=== PATIENT | female | born 1985 | race Caucasian/White ===

== ENCOUNTER 2017-12-03 17:44 | Emergency (ER) | payer MEDICAID, OTHER ==
[~2017-12-03] VITALS: Ht 152.4 cm; Wt 113.4 kg
[~2017-12-03 17:44] MED LIST: PREN1TAB39 PO
--- OUTSIDE RECORDS SUMMARY | 2017-12-03 17:50 | XMS REPORT ---
Author Author SOURAV Parikh Organization [facility] Address Unknown Care Team Providers Care Car Attendant Name Role Phone SOURAV Parikh Unavailable PROBLEMS Type Condition ICD9-CM Code [id number] Code Onset Dates Condition Status SNOMED Code Problem Morbid obesity 278.01 Active 073127799 Problem Irregular menstrual cycle 626.4 Active 51056522 Problem General counseling for initiation of other contraceptive measures V25.02 Active [id number] ALLERGIES Substance Reaction Event Type Date Status Aspirin Unknown Drug Allergy Jun, Active ENCOUNTERS Encounter Location Date Diagnosis [facility] [address] [id number] Jun, Dental examination Z01.20 [facility] [address] [phone] Mar, Encounter for dental examination Z01.20 and Dental caries K02.9 [facility] [phone] [place] [phone] Jun, [facility] [id number] [place] [phone] Jun, [facility] [id number] [place] [phone] Jun, [facility] [phone] [place] [phone] Apr, [facility] [address] [phone] Apr, [facility] [id number] [place] [phone] Apr, [facility] [address] [phone] Mar, [facility] [address] [facility] [id number] [place] [phone] Mar, [facility] [address] [facility] [id number] [place] [address] Sep, IMMUNIZATIONS No Known Immunizations SOCIAL HISTORY Never Assessed REASON FOR VISIT PAIN PLAN OF CARE Activity Details Follow Up prn Reason:1 hour te/filling VITAL SIGNS Blood pressure systolic 126 mmHg 2016-06-30 Blood pressure diastolic 88 mmHg 2016-06-30 MEDICATIONS No Known Medications RESULTS No Results PROCEDURES Procedure Date Ordered Result Body Site COMP ORAL EVALUATION - NEW/EST PT June 30, 2016 PANORAMIC FILM SEE ALSO CODE 42930 June 30, 2016 INSTRUCTIONS MEDICATIONS ADMINISTERED No Known Medications MEDICAL (GENERAL) HISTORY Type Description Date Medical History Asthma Surgical History 02/15/15
--- OUTSIDE RECORDS SUMMARY | 2017-12-03 17:50 | XMS REPORT ---
Author Author ALLEN MALONEY Organization [employer] Address Unknown Phone Unavailable Care Team Providers Care Clay Mixer Name Role Phone ALLEN MALONEY CP Unavailable Allergies, Adverse Reactions, Alerts Substance Reaction Event Type Aspirin Info Not Available Drug Allergy Problems Problem Type Condition Code Onset Dates Condition Status Problem Irregular menstrual cycle 626.4 Active Problem Morbid obesity 278.01 Active Problem General counseling for initiation of other contraceptive measures V25.02 Active Assessment Encounter for dental examination Z01.20 Active Assessment Dental caries K02.9 Active Medications Medication Code System Code Instructions Start Date End Date Status Dosage Albuterol NDC 0 not defined NuvaRing NDC [address]-23 0.12-0.015 mg/24 hr Apr 14, 2011 1 ea by Vaginal route every 4 weeksInsert ring and remove every 21 days Procedures Procedure Coding System Code Date INTRAORL-PERIAPICAL 1 FILM 06143 CPT-4 D0220 Mar 21, 2015 INTRAORL-PERIAPICAL 1 FILM 15038 CPT-4 D0220 Mar 21, 2015 LTD ORAL EVALUATION - PROBLEM FOCUS CPT-4 D0140 Mar 21, 2015 EXTRAC ERUPTED TOOTH/EXPOSED ROOT CPT-4 D7140 Mar 21, 2015 Vital Signs Date/Time: Mar 21, 2015 Blood Pressure Diastolic 93 mmHg Blood Pressure Systolic 133 mmHg Height 61 in Results No Known Results Summary Purpose [employer] Submission
[2017-12-03] MEDS ORDERED: LIDOCAINE 1% INJ 20 ML 20 ML VIAL ONE (19:54)
--- NOTE | 2017-12-03 19:55 | ED Integumentary General ---
General Chief Complaint: Skin/Wound Problems Stated Complaint: SPIDER BITE ON BREAST Nursing Triage Note: pt reports l breast wound/redness that is draining x 2 days. Source: patient Exam Limitations: no limitations History of Present Illness Date Seen by Provider: Dec 03, 2017 Time Seen by Provider: 19:30 Initial Comments Patient is a 32-year-old female who presents to the emergency room with complaints of a wound and erythema to her left breast for the past week. She reports for the past 2 days has been open and draining. She denies fevers reports nausea. Timing/Duration: week Location: torso (left breast) Possible Cause: no cause identified Associated Symptoms: edema Allergies and Home Medications Allergies Coded Allergies: No Known Drug Allergies (Unverified , 04/15/10) Home Medications Cephalexin 500 Mg Capsule, 500 MG PO BID Prescribed by: MANJULA DORSEY on 12/03/172003 Hydrocodone Bit/Acetaminophen 1 Tab Tab, 1 EACH PO Q4-6HR PRN for PAIN-MODERATE Prescribed by: MANJULA DORSEY on 12/03/172003 Vits W-Ca,Fe,Fa(<1MG) 1 Each Tablet, 1 TAB PO DAILY, (Reported) Patient Home Medication List Home Medication List Reviewed: Yes Review of Systems Review of Systems Constitutional: see HPI; No chills, No fever Skin: see HPI, other (abscess to left breast) Past Idkwhlz-Ittedn-Mccdry Hx Past Med/Social Hx: Reviewed Nursing Past Med/Soc Hx Patient Social History Alcohol Use: Rarely Uses Recreational Drug Use: No Smoking Status: Current Everyday Smoker Type Used: Cigarettes Recent Foreign Travel: No Contact w/Someone Who Travel: No Recent Infectious Disease Expo: No Recent Hopitalizations: Yes (T AND A-AGE 12 YRS,CHILDBIRTH 2007) Physical Abuse: No Sexual Abuse: No Fear: No Past Medical History Surgeries: Yes (T AND A 12YRS AND TUBES IN EARS AGE 3 YRS) Section, Tonsillectomy Respiratory: Yes Asthma Cardiac: No Neurological: No Reproductive Disorders: Yes Sexually Transmitted Disease: Yes (TRICHOMONIS AND "CLAP" TREATED FOR BOTH- BEFORE ) Genitourinary: No Gastrointestinal: No Musculoskeletal: Yes Endocrine: No Psychosocial: Yes Blood Disorders: No Family Medical History Reviewed Nursing Family Hx Physical Exam Vital Signs Vital Signs - First Documented 12/03/17 18:41 Temp 96.7 Pulse 99 Resp 16 B/P (MAP) 152/99 (116) Pulse Ox 98 Capillary Refill : Less Than 3 Seconds General Appearance: WD/WN, no apparent distress Neck: non-tender, full range of motion, supple, normal inspection Cardiovascular: normal peripheral pulses, regular rate, rhythm, no edema, no gallop, no JVD, no murmur Respiratory: chest non-tender, lungs clear, normal breath sounds, no respiratory distress, no accessory muscle use Neurologic/Psychiatric: alert, normal mood/affect, oriented x 3 Skin Problem Location: other (left breast ) Skin Problem Character: abscess, drainage, erythema Progress/Results/Core Measures Results/Orders Micro Results Microbiology 12/03/17 Gram Stain - Final, Complete 12/03/17 Wound Culture - Final, Complete No growth My Orders Orders - MANJULA DORSEY Ceftriaxone For Im Use (Rocephin For Im (12/04/17 09:00) Lidocaine 1% Inj 20 Ml (Xylocaine 1% Inj (12/03/17 19:54) Hydrocodone/Apap 5/325 Tablet (Lortab 5 (12/03/17 20:15) Wound Culture (12/03/17 20:05) Vital Signs/I&O 12/03/17 12/03/17 18:41 20:18 Temp 96.7 96.7 Pulse 99 99 Resp 16 14 B/P (MAP) 152/99 (116) 150/89 Pulse Ox 98 98 Blood Pressure Mean: 116 Progress Progress Note : Time: 19:50 Progress Note I have seen and evaluated the patient. The would is open and draining. I will be prescribing antibiotics for the infection and given her an IM dose of rocephin tonight. She agrees with plans of care, return precautions were given. Departure Impression Primary Impression: Cellulitis Additional Impression: Abscess Disposition: 01 HOME, SELF-CARE Condition: Stable/Unchanged Departure-Patient Inst. Decision time for Depature: 19:56 Referrals: MORIS DE OLIVEIRA MD (PCP/Family) Primary Care Physician Patient Instructions: Skin Abscess Add. Discharge Instructions: Take medication as directed. Follow-up with a primary care provider within 1 week for recheck. Return back to the emergency room for any worsening symptoms or concerns as needed. All discharge instructions reviewed with patient and/or family. Voiced understanding. Scripts Cephalexin (Keflex) 500 Mg Capsule 500 MG PO BID for 7 Days, #14 CAP Prov: MANJULA DORSEY 12/03/17 Hydrocodone Bit/Acetaminophen (Hydrocodone/Acetaminophen 5/325mg Tablet) 1 Tab Tab 1 EACH PO Q4-6HR PRN for PAIN-MODERATE MDD 10, #14 TAB Prov: MANJULA DORSEY 12/03/17 Images Female/Male 1 - Cellulitis MANJULA DORSEY Dec 03, 2017 19:55
[2017-12-03] MEDS ORDERED: ACHD5005 PO (20:04)
[2017-12-03] MEDS ORDERED: CEPH-507 PO (20:04)
[2017-12-03] MEDS ORDERED: HYDROcodone/APAP 5 MG/325 MG (LORTAB) TAB PO ONE (20:15)
[2017-12-03 20:18] VITALS: BP 150/89
[2017-12-04] MEDS ORDERED: cefTRIAXone 1,000 MG/2.86 ml vial (IM ONLY) IM SCH (09:00)
== END 2017-12-03 20:18 | disposition home or self-care (01) ==
LOC: EDUNIT# 17:44 → ER 17:46
DX: N61.1 Abscess of the breast and nipple (principal); L03.319 Cellulitis of trunk, unspecified; J45.909 Unspecified asthma, uncomplicated; F17.210 Nicotine dependence, cigarettes, uncomplicated; Z98.890 Other specified postprocedural states; Z86.19 Personal history of other infectious and parasitic diseases
CPT/HCPCS: 87070; 87205; 96372; 99284

== ENCOUNTER → 2018-05-26 | Outpatient (CLI) | payer MEDICAID ==
[~2018-05-26] MED LIST changes: +ACHD5005 PO; +CEPH-507 PO
--- NOTE | 2018-05-26 10:40 | Diagnostic Imaging Report ---
Indication: Right hand pain. Time of exam: 10:28 AM Four views of the right hand were obtained. Metacarpals are intact. Phalanges are intact. Carpus as well as the distal radius and ulna are intact and no fractures are seen. Impression: No acute abnormality is detected. Dictated by: Dictated on workstation # [id number]
== END ==
LOC: RAD FS 10:19
PROVIDERS: ATTEND Nurse Practitioner
DX: M79.644 Pain in right finger(s) (principal)
CPT/HCPCS: 73130